=== PATIENT | male | born 1965 | race Hispanic/Latino ===

== ENCOUNTER 2017-08-10 15:40 | Emergency (ER) | payer OTHER ==
[2017-08-10] MEDS ORDERED: Sodium Chloride 0.9% 500 ML IV STA (15:56)
[2017-08-10 16:05] VITALS: TEMP 97.4; BMI 30.7
[2017-08-10] MEDS ORDERED: Sodium Chloride 0.9% 1,000 ML IV STA (16:12)
[2017-08-10] MEDS ORDERED: Iohexol 350 MG/100 ML VIAL ONE (16:29)
--- NOTE | 2017-08-10 16:39 | ED PDOC ---
Arrival/HPI - General Historian: Patient - History of Present Illness Time/Duration: > week (1.5weeks) - General Chief Complaint: GI Problem Time Seen by Provider: 08/10/17 15:50 - History of Present Illness Narrative History of Present Illness (Text): 08/10/17 16:22 52yr old male presents today with 1.5 weeks of diarrhea with intermittent abdominal cramping. Patient denies chest pain or Shortness of breath. Patient denies any recent travel. Denies drinking water from a stream. Denies camping. Patient denies nausea vomiting or constipation. Patient denies urinary symptoms. Denies dizziness or weakness. Patient states every time he eats he gets a cramping sensation in the lower abdomen and then has episodes of watery diarrhea. Patient states over the past few days she's noticed small amount of blood on the toilet paper after bowel movement. Patient with a family history of colon cancer. patient denies abdominal pain at present time.No other complaints (Azoia,Haley T) Past Medical History - Provider Review Nursing Documentation Reviewed: Yes - Travel History Have you recently traveled outside [place] w/in the past 3 mons?: No - Infectious Disease Hx of Infectious Diseases: None - Tetanus Immunization Tetanus Immunization: Unknown - Psychiatric Hx Psychophysiologic Disorder: No Hx Substance Use: No - Anesthesia Hx Anesthesia: No Hx Anesthesia Reactions: No Hx Malignant Hyperthermia: No Family/Social History - Physician Review Nursing Documentation Reviewed: Yes Family/Social History: Unknown Family HX Smoking Status: Never Smoked Hx Alcohol Use: Yes Hx Substance Use: No Allergies/Home Meds Allergies/Adverse Reactions: Allergies No Known Allergies Allergy (Verified 06/03/16 14:17) Review of Systems - Review of Systems Constitutional: absent: Fatigue, Fevers Respiratory: absent: SOB, Cough Cardiovascular: absent: Chest Pain, Palpitations Gastrointestinal: Abdominal Pain, Diarrhea, Hematochezia. absent: Constipation , Nausea, Vomiting, Hematemesis Genitourinary Male: absent: Dysuria, Frequency, Hematuria Musculoskeletal: absent: Arthralgias, Back Pain, Neck Pain Skin: absent: Rash, Pruritis Neurological: absent: Headache, Dizziness Psychiatric: absent: Anxiety, Depression Physical Exam Vital Signs Reviewed: Yes Temperature: Afebrile Blood Pressure: Normal Pulse: Regular Respiratory Rate: Normal Appearance: Positive for: Well-Appearing, Non-Toxic, Comfortable Pain Distress: None Mental Status: Positive for: Alert and Oriented X 3 - Systems Exam Head: Present: Atraumatic Mouth: Present: Moist Mucous Membranes Neck: Present: Normal Range of Motion Respiratory/Chest: Present: Clear to Auscultation, Good Air Exchange. No: Respiratory Distress, Accessory Muscle Use Cardiovascular: Present: Regular Rate and Rhythm Abdomen: Present: Normal Bowel Sounds. No: Tenderness, Distention, Peritoneal Signs, Rebound, Guarding Rectal: Present: Occult Blood, Normal Rectal Tone, Other (chaparoned by RANDA schwartz). No: Rectal Tenderness, Gross Blood, Melena, Hemorrhoids, Fissures, Nodule/Mass/Lesions Back: Present: Normal Inspection. No: CVA Tenderness, Midline Tenderness, Paraspinal Tenderness Upper Extremity: Present: Normal ROM Lower Extremity: Present: Normal ROM Neurological: Present: GCS=15, Speech Normal Skin: Present: Warm, Dry, Normal Color. No: Rashes Psychiatric: Present: Alert, Oriented x 3 Vital Signs Temp Pulse Resp BP Pulse Ox 08/10/17 18:01 88 16 142/81 98 08/10/17 15:51 97.4 F L 97 H 16 132/84 97 Medical Decision Making ED Course and Treatment: 08/10/17 17:15 Patient currently with no abdominal pain, on my exam no rebound or guarding, and he is cardiovascularly stable. He reports intermittent crampy pain, denies fevers or travel. Given persistence of symptoms, have ordered CT abdomen to evaluate for colitis/ diverticulitis. Limitations of imaging stuides reviewed with patient and stressed need for outpatient GI follow-up as well given family hx of colon cancer. He currently denies any systemic symptoms. (Catherine Peacock) 08/10/17 16:40 Patient is nontoxic well appearing with stable vital signs presenting with abdominal pain and diarrhea x 1.5 weeks. pt was seen and evaluated by dr. Peacock. CBC; wnl CMP: wnl Lipase wnl Urinalysis: wnl CAT scan: FINDINGS: Lower thorax: Heart size is normal. There is minimal scarring at the lung bases. ABDOMEN: Liver: unremarkable Gallbladder and bile ducts: unremarkable Pancreas: unremarkable Spleen: Spleen size is at the upper limits of normal. Adrenals: unremarkable Kidneys and ureters: unremarkable Stomach and bowel: Stomach is almost empty. Rotation is normal. There is no small bowel obstruction. Ileocecal region is unremarkable. Appendix and terminal ileum are unremarkable.Colon is incompletely distended which limits evaluation.There is mild colonic wall thickening greatest in the splenic flexure and descending colon. There are scattered diverticulosis Appendix: See stomach and bowel PELVIS: Bladder: Bladder is partially distended. There is a small urachal cyst. Reproductive: Prostate is mildly enlarged.Seminal vesicles have the expected configuration. ABDOMEN and PELVIS: Intraperitoneal space: There is no free air or free fluid. Bones/joints: There are degenerative changes in the osseus structures. Soft tissues: unremarkable Vasculature: There are vascular calcifications. Lymph nodes: There is shotty mesenteric adenopathy. IMPRESSION: Mild colonic wall thickening suggesting colitis; small urachal cyst Additional findings as described above. Patient reassessment: pt is non toxic well appearing; no distress. stable vitals. abdomen remains non tender; ct shows colitis. will start patient on PO flagyl and cipro. Discussed all results with patient in depth. advised f/u with PMD. Stressed importance of f/u with GI specialist for evaluation of bleeding and CA risk. Advised taking abx as prescribed. advised immediate return if symptoms worsen, persist or if new symptoms develop. advised patient of Urachal cyst and need for f/u with urologist. Patient verbalizes understanding of discharge instructions and need for immediate followup. all aspects of this case were discussed the attending of record. Impression: Colitis Cipro one tablet twice daily x10 days Flagyl one tablet three times daily x10 days increase fluids. Follow up with primary care physician within the next 2 days Follow up with the GI specialist within the next 2 days. Return immediately if symptoms worsen persist or if new symptoms develop: High fevers, increasing pain, vomiting, diarrhea or any other concerning symptoms develop (Azoia,Haley T) - Lab Interpretations Lab Results: 08/10/17 16:23 08/10/17 16:23 Lab Results 08/10/17 18:00: Urine Color Yellow, Urine Appearance Clear, Urine pH 6.0, Ur Specific [place] 1.025, Urine Protein Negative, Urine Glucose (UA) Negative, Urine Ketones Negative, Urine Blood Negative, Urine Nitrate Negative, Urine Bilirubin Negative, Urine Urobilinogen 0.2, Ur Leukocyte Esterase Negative 08/10/17 16:23: WBC 7.8, RBC 4.82, Hgb 14.0, Hct 42.3, MCV 87.8, MCH 29.0, MCHC 33.1, RDW 13.6, Plt Count 230, MPV 9.3, Gran % 61.8, Lymph % (Auto) 19.6 L, [place] % (Auto) 11.6 H, Eos % (Auto) 6.1 H, Baso % (Auto) 0.9, Gran # 4.80, Lymph # 1.5, [place] # 0.9 H, Eos # 0.5, Baso # 0.07 08/10/17 16:23: Sodium 141, Potassium 3.8, Chloride 103, Carbon Dioxide 27, Anion Gap 14, BUN 12, Creatinine 1.1, Est GFR ( Amer) > 60, Est GFR (Non- Af Amer) > 60, Random Glucose 100, Calcium 9.4, Total Bilirubin 0.4, AST 23, ALT 37, Alkaline Phosphatase 80, Total Protein 7.3, Albumin 4.2, Globulin 3.1, Albumin/Globulin Ratio 1.4, Lipase 32 - RAD Interpretation Radiology Orders: 08/10/17 16:21 ABD & PELVIS IV CONTRAST ONLY [CT] Stat - Medication Orders Current Medication Orders: Discontinued Medications Sodium Chloride (Sodium Chloride 0.9%) 1,000 mls @ 999 mls/hr IV .Q1H1M STA Stop: 08/10/17 17:12 Last Admin: 08/10/17 16:30 Dose: 999 mls/hr eMAR Start Stop Document 08/10/17 16:30 HIL[facility] (Rec: 08/10/17 17:54 [id number]) Intravenous Solution Start Date 08/10/17 Start Time 16:30 End Date 08/10/17 End time 17:30 Total Infusion Time 60 Disposition/Present on Arrival - Present on Arrival Any Indicators Present on Arrival: No History of DVT/PE: No History of Uncontrolled Diabetes: No Urinary Catheter: No History of Decub. Ulcer: No History Surgical Site Infection Following: None - Disposition Have Diagnosis and Disposition been Completed?: Yes Disposition Time: 18:59 Patient Plan: Discharge - Disposition Diagnosis: Colitis, Urachal cyst Disposition: HOME/ ROUTINE Condition: GOOD Discharge Instructions (ExitCare): Colitis (ED) Additional Instructions: Cipro one tablet twice daily x10 days Flagyl one tablet three times daily x10 days increase fluids. Follow up with primary care physician within the next 2 days Follow up with the GI specialist within the next 2 days. Return immediately if symptoms worsen persist or if new symptoms develop: High fevers, increasing pain, vomiting, diarrhea or any other concerning symptoms develop Prescriptions: Ciprofloxacin [Cipro] 500 mg PO BID #20 tab metroNIDAZOLE [Flagyl] 500 mg PO BID #30 tab Referrals: Bruce Schneider MD [Primary Care Provider] - Follow up with primary Bruce Marie MD [Staff Provider] - Follow up with primary Mayito Fernando MD [Staff Provider] - Follow up with primary Forms: [employer] (Russian), WORK NOTE
[2017-08-10 16:43] LABS: BASO # 0.07 K/mm3 (0.0-2.0); BASO % 0.9 % (0.0-3.0); EOS # 0.5 (0.0-0.7); EOS % 6.1 % (1.5-5.0); GRAN # 4.8 (1.4-6.5); GRAN % 61.8 % (50.0-68.0); HEMATOCRIT 42.3 % (42.0-52.0); LYMPH # 1.5 (1.2-3.4); LYMPH % 19.6 % (22.0-35.0); MEAN CELL VOLUME 87.8 fl (80.0-105.0); MEAN CORPUSCULAR HGB CONC 33.1 g/dl (31.0-37.0); MEAN PLATELET VOLUME 9.3 fl (7.0-11.0); MONO # 0.9 (0.1-0.6); MONO % 11.6 % (1.0-6.0); RED CELL DISTRIBUTION WIDTH 13.6 % (11.5-14.5); WHITE BLOOD COUNT 7.8 10^3/ul (4.5-11.0)
[2017-08-10 16:45] LABS: ALB/GLOB RATIO 1.4 (1.1-1.8); ALKALINE PHOSPHATASE 80 U/L (38-126); ALT/SGPT 37 U/L (7-56); AST/SGOT 23 U/L (17-59); BILIRUBIN,TOTAL 0.4 mg/dL (0.2-1.3); BLOOD UREA NITROGEN 12 mg/dL (7-21); CALCIUM 9.4 mg/dL (8.4-10.5); CARBON DIOXIDE 27 mmol/L (21-33); CHLORIDE 103 mmol/L (98-107); GFR AFRICAN-AMERICAN > 60; GLUCOSE,RANDOM 100 mg/dL (70-110); LIPASE 32 U/L (23-300); POTASSIUM 3.8 mmol/L (3.6-5.0); SODIUM 141 mmol/L (132-148); TOTAL PROTEIN 7.3 g/dL (5.8-8.3)
[2017-08-10 18:12] LABS: URINE BILIRUBIN NEGATIVE (NEGATIVE); URINE BLOOD NEGATIVE (NEGATIVE); URINE GLUCOSE (UA) NEGATIVE (NEGATIVE); URINE KETONE NEGATIVE (NEGATIVE); URINE LEUKOCYTE ESTERASE NEGATIVE Leu/uL (NEGATIVE); URINE PROTEIN NEGATIVE mg/dL (<30 mg/dL); URINE UROBILINOGEN 0.2 E.U./dL (<1 E.U./dL)
[2017-08-10 18:15] LABS: URINE APPEARANCE CLEAR (CLEAR); URINE COLOR YELLOW (YELLOW)
--- NOTE | 2017-08-10 18:29 | CT ---
EXAM: CT Abdomen and Pelvis With Intravenous Contrast EXAM DATE/TIME: 08/10/2017 4:21 PM CLINICAL HISTORY: 52 years old, male; Pain; Abdominal pain; Acute; Patient HX: [place] 1x week; Additional info: Abd pain TECHNIQUE: Axial computed tomography images of the abdomen and pelvis with intravenous contrast. All CT scans at this facility use one or more dose reduction techniques, viz.: automated exposure control; ma/kV adjustment per patient size (including targeted exams where dose is matched to indication; i.e. head); or iterative reconstruction technique. Coronal and sagittal reformatted images were created and reviewed. CONTRAST: 100 mL of omni administered intravenously. COMPARISON: There are no prior studies for comparison. FINDINGS: Lower thorax: Heart size is normal. There is minimal scarring at the lung bases. ABDOMEN: Liver: unremarkable Gallbladder and bile ducts: unremarkable Pancreas: unremarkable Spleen: Spleen size is at the upper limits of normal. Adrenals: unremarkable Kidneys and ureters: unremarkable Stomach and bowel: Stomach is almost empty. Rotation is normal. There is no small bowel obstruction. Ileocecal region is unremarkable. Appendix and terminal ileum are unremarkable.Colon is incompletely distended which limits evaluation.There is mild colonic wall thickening greatest in the splenic flexure and descending colon. There are scattered diverticulosis Appendix: See stomach and bowel PELVIS: Bladder: Bladder is partially distended. There is a small urachal cyst. Reproductive: Prostate is mildly enlarged.Seminal vesicles have the expected configuration. ABDOMEN and PELVIS: Intraperitoneal space: There is no free air or free fluid. Bones/joints: There are degenerative changes in the osseus structures. Soft tissues: unremarkable Vasculature: There are vascular calcifications. Lymph nodes: There is shotty mesenteric adenopathy. IMPRESSION: Mild colonic wall thickening suggesting colitis; small urachal cyst Additional findings as described above.
[2017-08-10 19:27] VITALS: BP 137/82; PULSE 80; RESP 18; O2SAT 99
== END 2017-08-10 19:38 | disposition home or self-care (01) ==
LOC: ED 15:40
DX: K52.9 Noninfective gastroenteritis and colitis, unspecified (principal); Q64.4 Malformation of urachus
CPT/HCPCS: 74177; 80053; 81003; 83690; 85025; 96360; 99283; J7040; Q9967